=== PATIENT | female | born 1990 ===

== ENCOUNTER 2016-11-27 14:31 | Emergency (ER) | payer BC ==
[2016-11-27 14:38] VITALS: BP 127/68; PULSE 83; RESP 16; TEMP 98.5; O2SAT 99
--- NOTE | 2016-11-27 14:43 | ED PDOC ---
Upper Extremity Pain/Injury Time Seen by Provider: 11/27/16 14:39 Chief Complaint (Nursing): Upper Extremity Problem/Injury Chief Complaint (Provider): RIGHT WRIST PAIN History Per: Patient (26 Y/O FEMALE HERE FOR EVALUATION OF RIGHT WRIST INJURY THAT OCCURRED 4 DAYS AFTER AFTER TRIP AND FALL WHILE BOWLING. PATIENT STATES SHE FELL ON WRIST WITH FINGERS TOO DEEP IN BOWL. 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 IS RIGHT HANDED.) Past Medical History Reviewed: Historical Data, Nursing Documentation, Vital Signs Vital Signs: Last Vital Signs Temp 98.5 F 11/27/16 14:35 Pulse 83 11/27/16 14:35 Resp 16 11/27/16 14:35 BP 127/68 11/27/16 14:35 Pulse Ox 99 11/27/16 14:35 - Medical History PMH: Depression (has taken Zoloft for several years) Denies: Diabetes, Hepatitis, HIV, HTN, Seizures, Sexually Transmitted Disease - Family History Family History: States: Unknown Family Hx - Immunization History Hx Tetanus Toxoid Vaccination: No Hx Influenza Vaccination: No Hx Pneumococcal Vaccination: No - Home Medications Home Medications: Ambulatory Orders Medication Instructions Recorded Divalproex [Depakote ER] 2 tab PO DAILY 11/27/16 Naproxen [Naprosyn Tab] 1 tab PO Q8 PRN #21 tab 11/27/16 - Allergies Allergies/Adverse Reactions: Allergies Allergy/AdvReac Type Severity Reaction Status Date / Time green tea Allergy RASH Verified 11/27/16 14:35 latex Allergy RASH Verified 11/27/16 14:35 Penicillins Allergy RASH Verified 08/20/16 11:41 shellfish derived Allergy ANAPHYLAXIS Verified 11/27/16 14:35 Review of Systems ROS Statement: Except As Marked, All Systems Reviewed And Found Negative Musculoskeletal: Positive for: Other (WRIST PAIN) Physical Exam - Reviewed Nursing Documentation Reviewed: Yes Vital Signs Reviewed: Yes - Physical Exam Appears: Positive for: Well, Non-toxic, No Acute Distress Head Exam: Positive for: ATRAUMATIC, NORMAL INSPECTION, NORMOCEPHALIC Skin: Positive for: Normal Color, Warm, DRY Eye Exam: Positive for: EOMI, Normal appearance, PERRL ENT: Positive for: Normal ENT Inspection Neck: Positive for: Normal, Painless ROM Cardiovascular/Chest: Positive for: Regular Rate, Rhythm Respiratory: Positive for: CNT, Normal Breath Sounds Gastrointestinal/Abdominal: Positive for: Normal Exam, Bowel Sounds, Soft Back: Positive for: Normal Inspection Extremity: Positive for: Normal ROM, Tenderness (TENDERNESS NOTED ULNAR ASPECT OF RIGHT HAND AND WRIST. NO SNUFFBOX TENDERNESS. NO OBVIOUS BONY DEFORMITY/ TENDERNESS.) Neurologic/Psych: Positive for: Alert, Oriented - ECG O2 Sat by Pulse Oximetry: 99 - Progress ED Course And Treament: xry of wrist: no fx noted Placed in thumb splica velcro splint. d/w patient no use of hand x 3 days to assist with improvement of symptoms. Disposition - Clinical Impression Clinical Impression: Ulnar collateral ligament sprain - Patient ED Disposition Is Patient to be Admitted: No - Disposition Referrals: Patrick Lockhart MD [Medical Doctor] - Disposition: Routine/Home Disposition Time: 15:41 Condition: FAIR Prescriptions: Naproxen [Naprosyn Tab] 1 tab PO Q8 PRN #21 tab PRN Reason: Pain, Moderate (4-7) Instructions: Wrist Sprain (ED) Forms: [facility] ED School/Work Excuse
--- NOTE | 2016-11-27 15:10 | RAD ---
PROCEDURE: Right wrist dated 11/27/2016. Three standard views right wrist performed. HISTORY: Wrist pain COMPARISON: No prior FINDINGS: BONES: No evidence of acute displaced fracture nor dislocation. JOINTS: Normal. No dislocation. SOFT TISSUES: Normal. OTHER FINDINGS: No radiopaque foreign bodies IMPRESSION: No evidence of acute displaced fracture nor dislocation. If symptoms persist or occult fracture suspected clinically recommend repeat radiographs in 5-10 days as most fractures should become radiographically evident in this timeframe.
== END 2016-11-27 15:50 | disposition home or self-care (01) ==
LOC: H.ER 14:31
DX: S53.441A Ulnar collateral ligament sprain of right elbow, initial encounter (principal); W19.XXXA Unspecified fall, initial encounter; Y92.89 Other specified places as the place of occurrence of the external cause; Z88.0 Allergy status to penicillin; F32.9 Major depressive disorder, single episode, unspecified

== ENCOUNTER 2018-08-14 16:53 | Emergency (ER) | payer BC, OTHER ==
[2018-08-14 17:13] VITALS: BP 142/89; PULSE 81; RESP 18; TEMP 98; O2SAT 100
--- NOTE | 2018-08-14 17:26 | ED PDOC ---
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 Denies numbness and tingling. Bleeding controlled upon ED arrival. Right hand dominant Tetanus not up to date PMD: none provided Past Medical History Reviewed: Historical Data, Nursing Documentation, Vital Signs Vital Signs: Last Vital Signs Temp 98.0 F 08/14/18 17:10 Pulse 81 08/14/18 17:10 Resp 18 08/14/18 17:10 BP 142/89 08/14/18 17:10 Pulse Ox 100 08/14/18 17:10 - Medical History PMH: Depression (has taken Zoloft for several years) Denies: Diabetes, Hepatitis, HIV, HTN, Seizures, Sexually Transmitted Disease - Surgical History Surgical History: No Surg Hx - Family History Family History: States: Unknown Family Hx - Social History Current smoker - smoking cessation education provided: No Alcohol: None Drugs: Denies - Immunization History Hx Tetanus Toxoid Vaccination: No Hx Influenza Vaccination: No Hx Pneumococcal Vaccination: No - Home Medications Home Medications: Ambulatory Orders Medication Instructions Recorded Divalproex [Depakote ER] 2 tab PO DAILY 11/27/16 Naproxen [Naprosyn Tab] 1 tab PO Q8 PRN #21 tab 11/27/16 Sulfamethoxazole/Trimethoprim 1 tab PO BID #20 tab 08/14/18 [Bactrim DS 800 mg-160 mg] - Allergies Allergies/Adverse Reactions: Allergies Allergy/AdvReac Type Severity Reaction Status Date / Time green tea Allergy RASH Verified 08/14/18 17:10 latex Allergy RASH Verified 08/14/18 17:10 Penicillins Allergy RASH Verified 08/14/18 17:10 shellfish derived Allergy ANAPHYLAXIS Verified 08/14/18 17:10 Review of Systems ROS Statement: Except As Marked, All Systems Reviewed And Found Negative Skin: Positive for: Other (knife wound to left thumbnail) Neurological: Negative for: Numbness, Other (tingling) Physical Exam - Reviewed Nursing Documentation Reviewed: Yes Vital Signs Reviewed: Yes - Physical Exam Appears: Positive for: No Acute Distress Cardiovascular/Chest: Positive for: Regular Rate, Rhythm Respiratory: Positive for: Normal Breath Sounds. Negative for: Respiratory Distress Extremity: Positive for: Normal ROM (of left hand and all digits), Other (left hand: right side distal thumb with .7cm x .3cm avulsion; bleeding under control; distal part of nail removed) Neurologic/Psych: Positive for: Alert, Oriented (x3). Negative for: Motor/Sensory Deficits - ECG O2 Sat by Pulse Oximetry: 100 (RA) Pulse Ox Interpretation: Normal Medical Decision Making Medical Decision Making: Time: 1729 Initial Impression: avulsion laceration to left thumb Initial Plan: --Tetanus booster 1838 Bleeding rendered under control using 2% lido with epinephrine topically, and 2 layers of gel-foam. Small thumb splint applied for protection. Patient educated on further wound care and return parameters discussed. Scribe Attestation: Documented by Allyssa Quiñonez, acting as a scribe for Kwadwo Hernandez PA-C. Provider Scribe Attestation: All medical record entries made by the Scribe were at my direction and personally dictated by me. I have reviewed the chart and agree that the record accurately reflects my personal performance of the history, physical exam, medical decision making, and the department course for this patient. I have also personally directed, reviewed, and agree with the discharge instructions and disposition. Disposition - Clinical Impression Clinical Impression: Laceration - Patient ED Disposition Is Patient to be Admitted: No Doctor Will See Patient In The: Office Counseled Patient/Family Regarding: Diagnosis, Need For Followup, Rx Given - Disposition Referrals: [facility] [Outside] Disposition: Routine/Home Disposition Time: 18:35 Condition: STABLE Prescriptions: Sulfamethoxazole/Trimethoprim [Bactrim DS 800 mg-160 mg] 1 tab PO BID #20 tab Instructions: Wound Care (DC) Forms: [facility] (Eth[place]ian)
[2018-08-14] MEDS ORDERED: Tdap Vaccine 0.5 ml Vial (10-64 yrs) IM ONE ×2 (17:42→18:16)
[2018-08-14] MEDS ORDERED: Lidocaine 1% Inj (20ml) ONE (18:01)
[2018-08-14] MEDS ORDERED: Lidocaine 1% w Epi 1:100,000 Inj ONE (18:02)
[2018-08-14] MEDS ORDERED: Absorbable Gelatin Sponge Size 12-7 ONE (18:02)
[2018-08-14] MEDS ORDERED: Lidocaine 1.5% PF (20ml) amp INJ ONE (18:11)
[2018-08-14] MEDS ORDERED: Absorbable Gelatin Sponge Size 12-7 TP ONE (18:13)
== END 2018-08-14 18:51 | disposition home or self-care (01) ==
LOC: H.ER 16:53
DX: S61.012A Laceration without foreign body of left thumb without damage to nail, initial encounter (principal); W26.0XXA Contact with knife, initial encounter; Y99.0 Civilian activity done for income or pay; Z88.0 Allergy status to penicillin